=== PATIENT | female | born 1950 | race Caucasian/White ===

== ENCOUNTER → 2017-06-18 | Outpatient (CLI) | payer MEDICARE ==
[~2017-06-18] MED LIST: ALBU2.5V5 NEB; ALBU3IS NEB; ALBU90OI6 INH; ALBU90OI61; ALPR.25 PO; AZIT250 PO; BUDE6HFA INH; CALCAVITDA PO; CHLO25B PO; Calcium Carbon500 M1 PO; DOXY100 PO; FURO20 PO; HYDR-86 PO; Hair, Skin & N1 EACH PO; IBUP800 PO; LEVOFLOXACIN750 MG PO; Lisinopril2.5 MG PO; MEGA RED PO; METO25 PO; MULVITMIND PO; NICO21TP TOP; Norco 7.5-3251 EACH PO; OXYC5 PO; POTCHL10ER PO; PRED10 PO; PRED20 PO; PREG75 PO; Percocet 5-3251 EACH PO; TIOT18 INH; VENL75ER PO; Ventolin Soln3 ML INH; ZESTRIL PO
== END | disposition home or self-care (01) ==
LOC: LAB SHORT 13:00 → PLD 13:00
DX: N88.8 Other specified noninflammatory disorders of cervix uteri (principal)
CPT/HCPCS: 88305; 88342